=== PATIENT | male | born 1980 | race Hispanic/Latino ===

== ENCOUNTER 2017-03-09 06:15 | Day surgery (SDC) | payer OTHER ==
[2017-03-09] MEDS ORDERED: Propofol 10 mg/ml Inj (20 ML) ONE ×2 (08:22→08:48)
[2017-03-09 08:50] VITALS: TEMP 98; O2SAT 100
[2017-03-09 09:09] VITALS: RESP 18
[2017-03-09 09:35] VITALS: BP 101/65; PULSE 75
[2017-03-09] MEDS ORDERED: Lidocaine Hydrochloride 5 ML INJ ONE (09:54)
== END 2017-03-09 09:55 | disposition home or self-care (01) ==
LOC: C.ENDO 06:15
PROVIDERS: ATTEND Internal Medicine
DX: K29.80 Duodenitis without bleeding (principal); K59.09 Other constipation; K44.9 Diaphragmatic hernia without obstruction or gangrene; K22.10 Ulcer of esophagus without bleeding; K29.50 Unspecified chronic gastritis without bleeding
CPT/HCPCS: 43239; 88305; 88313; 88342; J2704